=== PATIENT | female | born 1980 | race Caucasian/White ===

== ENCOUNTER 2018-04-11 10:00 | Day surgery (SDC) | payer MEDICAID, SELFPAY ==
[2018-04-11] VITALS (7 sets, daily range): BP systolic 109–121; BP diastolic 81–96; PULSE 65–79; RESP 16; TEMP 36.4–36.9; O2SAT 96–100; BMI 21.0
[2018-04-11] MEDS: Bacitracin 500 UNITS/GM PACKET (12:00)
--- NOTE | 2018-04-11 12:58 | PCM.OPRPT ---
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 Clinical examination showed a deep retraction pocket into the attic and audiometric testing showed a large conductive hearing loss on the left side. CT scanning showed no significant mastoid or soft tissue mass within the attic and surgical expiration for treatment of the developing attic cholesteatoma and conductive hearing loss was offered and she was eager to proceed. The risks, alternatives, potential benefits, and complications were discussed at length and any questions answered to the patient and/or caregiver's satisfaction. Witnessed informed consent was obtained in the office, and the patient and/or caregiver was agreeable to proceed. Procedure went as follows: The patient was identified in the preoperative holding brought to the operating room and was placed under general anesthesia and intubated. The operative ear had been site marked preoperatively in accordance with the office notes patient exam and history. The patient was then placed under general anesthesia and the left ear prepped and draped in usual sterile fashion. The facial nerve monitoring electrodes were then placed in the confirmed to be operational in accordance with the manufactures directions. The planned postauricular incision site for fascial graft harvest was then injected with 1% lidocaine with 100,000 epinephrine for a total of 4 mL. Through a #5 otic speculum the operative microscope was brought into the field and the external auditory canal and tympanic membrane visualized. The lateral canal wall was then injected with 1% lidocaine with 100,000 epinephrine for a total of 0.5 cc. Using a round knife a vascular strip incision was then created and developed anteriorly to the annulus where the middle ear cleft was then entered. Using a annulus elevator the annulus was then elevated anteriorly and posteriorly. The tympanic membrane remnant was then draped anteriorly to allow visualization of the middle ear space. There is noted to be significant adhesion to the promontory and this was sharply ligated with a sickle knife. The stapes capitulum was easily visualized and was found to be intact and gentle palpation showed this to be mobile. The long process of the incus was absent and eroded from the retraction of the tympanic membrane into the attic space. The right traction pocket lining was then followed and sharply dissected with a sickle knife and resected over its attachment to the body of the malleus. The area of retraction as well as the attachment of the tympanic memory to the long process of the malleus was then sharply resected. Epinephrine soaked cotton balls and placed for hemostasis and attention turned to the fascial graft harvest. A 3 cm incision was then created a 15 blade scalpel posterior to the auricle at the previous injection site. The skin and subcutaneous tissues were then dissected and the posterior auricular muscle sharply transected. The subfascial plane was then widely developed any 2.5 x 2.5 centimeter portion of loose areolar tissue then harvested and set aside on a Gómez block for reconstruction of the tympanic membrane. The wound edges were then cauterized with electrocautery for hemostasis and closed deeply with interrupted 3-0 Vicryl sutures followed by running 5-0 Monocryl to the skin. Using a 15 blade scalpel a 1 cm incision was then made overlying the tragus and a portion of the tragal cartilage harvested. This wound was then closed with interrupted 5-0 Monocryl sutures. This completed the graft harvest portion of the procedure. Attention was then turned to reconstruction of the tympanic membrane. The operative microscope was replaced and through an otic speculum the middle ear cleft filled with Gelfoam packing material after removal of the epinephrine soaked cotton balls. The previously harvested graft tissue was then placed in an underlay fashion ensuring that it completely covered the tympanic membrane perforation. A slit had previously been placed in the graft and this was withdrawn underneath the long process of the malleus securing this in position. Once the graft was positioned and ensured to be underlying the anterior and superior portions of the tympanic membrane reconstruction this was then redraped anteriorly to allow for reconstruction of the ossicular chain. A CureDM titanium VARIAC system prosthesis was then fashioned 2.5 mm in length and this was then placed over the stapes capitulum. This was secured with additional Gelfoam material. The graft was then redraped overlying this after placing a cartilage rachell to prevent erosion of the metallic prosthesis completing the reconstruction of the ossicular chain. The vascular strip was then returned to its chemehuevi position and additional Gelfoam material applied laterally to hold the composite tissue graft in place. Bacitracin ointment was then applied to secure the material and the patient then cleaned of prep solution and the facial nerve monitoring electrodes removed. The patient was then returned to anesthesia, revived and extubated without complication having tolerated the procedure well. Type of Anesthesia:: General Anesthesiologist: Burt Coffman Special Medications: none Specimen's removed: none Drains: none Estimated Blood Loss (mL): 25 mL Fluids Replaced: 900 mL Grafts/Implants Used: Gary VARIAC PORP prosthesis - Complications none - Admit VTE Documentation VTE Present on Admission: No VTE Mechan Device Prophylaxis: SCD's VTE Pharm Prophylaxis ordered?: No
--- NOTE | 2018-04-11 13:10 | DCINST_ITS ---
- Discharge Diagnoses Current Active Problems: Current Active and Chronic Problems Cholesteatoma of attic of left ear (Chronic) Conductive hearing loss in left ear (Chronic) Acute dysfunction of left eustachian tube (Acute) You will use the following diet at home:: Regular Discharge Activity: Return to Normal Activity Call your doctor if your incision/area has: Sudden Increased Bleeding, Increased Pain/ Swelling, Swelling at the incision site Call your doctor if you observe: Fever of 101 or Higher, Uncontrolled pain Cleanse incision/area with: Do not get Incision Wet Allergies/Adverse Reactions: Allergies No Known Allergies Allergy (Verified 04/09/18 09:44) Medications to take at Discharge [id number] 2 cap PO DAILY 04/09/18 Duloxetine Hcl [Cymbalta] 60 mg PO DAILY 04/09/18 Primary Care Physician: Stephany Villarreal NP-C [Primary Care Provider] - Test Results: Test results from this visit will be discussed in further detail at your follow- up appointment, if applicable. Please Follow Up With: Jose A De Souza MD When: 1 week
[2018-04-11] MEDS: Ibuprofen 400 MG Tablet PO (14:25)
== END 2018-04-11 14:48 | disposition home or self-care (01) ==
LOC: SDC 10:02 → AC 10:02
PROVIDERS: Family Provider Family Medicine; PCP Family Medicine; Referring Provider Otolaryngology; Visit Provider Otolaryngology
PROC: (CPT 69642; principal; 2018-04-11 11:05)
DX: H71.02 Cholesteatoma of attic, left ear (principal); H90.12 Conductive hearing loss, unilateral, left ear, with unrestricted hearing on the contralateral side; H69.92 Unspecified Eustachian tube disorder, left ear; F32.9 Major depressive disorder, single episode, unspecified; F17.200 Nicotine dependence, unspecified, uncomplicated
CPT/HCPCS: 69642; J7120; J2405; J3490